=== PATIENT | male | born 1965 | race Caucasian/White ===

== ENCOUNTER 2017-08-09 12:45 | Emergency (ER) | payer MEDICARE ==
[~2017-08-09] VITALS: Ht 177.8 cm; Wt 93.0 kg
--- OUTSIDE RECORDS SUMMARY | 2017-08-09 12:47 | XMS REPORT | Clinical Summary ---
Author Author ASH [facility] CenterAccess PharmaceuticalsWashington [facility] Organization [facility] Address Unknown Phone Unavailable Care Team Providers Care Assistant Professor Of Radiology Name Role Phone PCP Unavailable Allergies No Known Allergies Current Medications Prescription Sig. Disp. Refills Start End Date Status Date furosemide (LASIX) 80 MG Take 1 tablet (80 mg 30 tablet 5 09/01/19 09/01/19 Active tablet total) by mouth daily. 17 18 lactulose (CHRONULAC) 10 Take 30 mLs (20 g total) 946 mL 6 09/01/19 Active gram/15 mL (15 mL) by mouth 3 (three) times 17 solutionIndications: daily. Hepatic encephalopathy (HCC) buPROPion (ZYBAN) 150 MG Take 1 tablet (150 mg 30 tablet 0 09/09/19 09/09/19 Active 12 hr tablet total) by mouth 2 (two) 17 18 times daily. spironolactone Take 3 tablets (150 mg 100 tablet 6 07/13/19 (ALDACTONE) 50 MG tablet total) by mouth daily. 17 18 furosemide (LASIX) 20 MG Take 4 tablets (80 mg 20 tablet 0 07/19/19 08/22/19 Discontin tablet total) by mouth daily. 17 17 ued furosemide (LASIX) 20 MG Take 4 tablets (80 mg 30 tablet 6 08/22/19 09/01/19 Discontin tablet total) by mouth daily. 17 17 ued lactulose (CEPHULAC) 20 Take 1 packet (20 g 90 each 6 08/22/1908/31 Discontin gram packet total) by mouth 3 (three) 17 17 ued times daily. Active Problems Problem Noted Date Awaiting organ transplant status 12/18/2016 Encounter for pre-transplant evaluation for liver transplant 08/09/2016 Last Assessment & Plan: He is an acceptable candidate for liver transplant. He can proceed with further evaluation for transplant. Alcoholic cirrhosis 07/12/2016 Last Assessment & Plan: Liver disease secondary to ETOH use. His last drink was in September 2013. Portal hypertension 07/12/2016 Last Assessment & Plan: He presents with ascites. Ascites 07/12/2016 Last Assessment & Plan: He does require paracentesis for his ascites. He is also on diuretics and was instructed about the importance of a low sodium diet. Sarcopenia 07/12/2016 Last Assessment & Plan: Significant muscle wasting noted on exam. Pre-albumin and zinc assessment recommended. See above discussion. Immunity status testing 07/12/2016 Last Assessment & Plan: Serological tests will be completed to determine the presence of immunity to hepatitis A and B. If the patient does not have adequate immunity, we would recommend administration of appropriate vaccination as per CDC guidelines by the primary care provider. Screening for malignant neoplasm 07/12/2016 Last Assessment & Plan: Cirrhosis, regardless of etiology, is a risk factor for development of hepatocellular carcinoma. The annual incidence of HCC varies from 1.5-7%. Thus, we recommend surveillance for HCC be performed using contrast MRI or CT imaging and alphafetoprotein every 6 months. Malnutrition 07/12/2016 Last Assessment & Plan: Likely secondary to decreased po related to large volume ascites. Discussed the importance of US paracentesis more frequent until the diuretics can be adjusted. Frequent small meals low in sodium as noted above. Encounters Date Type Specialty Care Team Description 08/06/2017 Telephone Transplant Hepatology Abbey Gar RN Follow-up 07/31/2017 Telephone Transplant Hepatology Rosibel Bobo Appointment (Confirmed 08/14 & 10/23 appts w/pt. Itinerary mailed.) 07/31/2017 Telephone Transplant Hepatology Rosibel Bobo Appointment (LVM. Calling to confirm 08/14 appts 12:30 Feghali & mri @ 2. ) 07/26/2017 Telephone Transplant Hepatology Rosibel Bobo Appointment (Called pt to reschedule mri due to machine being down. Pt also asked to reschedule Feghali & labs all to be done on the same day. Rescheduled to 08/14. Itinerary mailed.) 07/13/2017 Telephone Transplant Hepatology Rosibel Bobo Appointment (Confirmed 07/27 feghali & mri appts also scheduled labs for meld update and confirmed 10/23 clinic appts w/pt. Itinerary emailed.) 07/03/2017 Telephone Transplant Hepatology Abbey Gar RN Follow-up 07/02/2017 Telephone Transplant Hepatology Abbey Gar RN Follow-up 05/05/2017 Orders Only Transplant Hepatology Abbey Gar RN Awaiting organ transplant status (Primary Dx) 05/02/2017 Telephone Transplant Hepatology Rosibel Bobo Appointment (Scheduled 07/27 mri & Dr Landrum appt (8am) also 10/23 clinic appt w/pt. Itinerary mailed.) 04/24/2017 Follow-Up Transplant Hepatology Therese Tanner, Alcoholic cirrhosis of MD [facility]PH liver with ascites (HCC) Meeta Downing MD (Primary Dx) 04/23/2017 Telephone Transplant Hepatology Rosibel Bobo Appointment (Confirmed 04/24 appt w/pt. ) 03/27/2017 Orders Only Transplant Hepatology Meeta Downing MD Awaiting organ transplant status;Abnormal finding of blood chemistry ;Abnormal coagulation profile 03/27/2017 Ancillary Lab Meeta Downing MD Orders 03/27/2017 Ancillary Lab Meeta Downing MD Orders 03/27/2017 Ancillary Lab Meeta Downing MD Orders 03/27/2017 Orders Only Transplant Hepatology Roge Soni Awaiting organ transplant status;Abnormal finding of blood chemistry ;Abnormal coagulation profile 03/26/2017 Orders Only Transplant Hepatology Abbey Gar RN Awaiting organ transplant status (Primary Dx);Abnormal finding of blood chemistry ;Abnormal coagulation profile 03/20/2017 Orders Only Transplant HepatRosibel Gooden Awaiting organ transplant status;Abnormal finding of blood chemistry ;Abnormal results of liver function studies 03/17/2017 Orders Only Transplant Hepatology Abbey Gar RN Awaiting organ transplant status (Primary Dx);Abnormal finding of blood chemistry ;Abnormal results of liver function studies 03/16/2017 Orders Only Transplant HepatAbbey Sullivan RN 03/13/2017 Telephone Transplant HepatRosibel Gooden Appointment (Called to schedule labs for meld update. [facility] 02/12/2017 Telephone Transplant HepatRosibel Gooden Appointment (Rescheduled 02/13 clinic appt w/pt to Apr 24. Pt said he goes by mychart and is unable to see appt in his mychart i explained he is on my schedule and his appt was sxd w/him in December. Mailed itinerary.) 02/12/2017 Telephone Transplant Hepatology Rosibel Bobo Appointment (Confirmed 02/13 appt w/pt. ) 01/29/2017 Hospital Radiology Meeta Downing MD Other ascites Encounter 01/29/2017 [facility] Radiology Eric Ortega MD Cirrhosis of liver with Encounter ascites, unspecified hepatic cirrhosis type (HCC);Screening for malignant neoplasm;Awaiting organ transplant status 01/16/2017 Documentation Transplant Hepatology Rosibel Bobo 01/15/2017 Orders Only Transplant Hepatology Abbey Gar RN Other ascites (Primary Dx) 01/15/2017 Orders Only Transplant Hepatology Abbey Gar RN Other ascites (Primary Dx) 12/25/2016 [facility] Charge Transplant Hepatology Landen Howard MD Visit Provider, [facility] Generic 12/18/2016 Telephone Transplant Hepatology Rosibel Bobo Appointment (Scheduled 02/13 clinic & mri appt w/pt. Itinerary mailed.) 12/18/2016 Abstract Transplant Hepatology Clarissa Shultz 12/18/2016 Orders Only Transplant Hepatology Abbey Gar RN Cirrhosis of liver with ascites, unspecified hepatic cirrhosis type (HCC) (Primary Dx);Screening for malignant neoplasm;Awaiting organ transplant status 12/18/2016 Abstract Transplant Hepatology Abbey Gar RN 12/12/2016 Orders Only Transplant Hepatology An Joshua MD Hepatic cirrhosis, unspecified hepatic cirrhosis type (HCC);Cancer screening 12/12/2016 Ancillary Lab Eric Ortega MD Orders 12/12/2016 Ancillary Lab Eric Ortega MD Orders 12/12/2016 Ancillary Lab Eric Ortega MD Orders 12/12/2016 Orders Only Transplant Hepatology Issa Rivera Hepatic cirrhosis, unspecified hepatic cirrhosis type (HCC) 12/11/2016 Orders Only Transplant Hepatology Abbey Gar RN Hepatic cirrhosis, unspecified hepatic cirrhosis type (HCC) (Primary Dx) 12/08/2016 Orders Only Transplant Hepatology Abbey Gar RN Hepatic cirrhosis, unspecified hepatic cirrhosis type (HCC) (Primary Dx);Cancer screening 12/08/2016 Telephone Transplant Hepatology Rosibel Bobo Appointment (Scheduled 12/12 lab appt w/pt (pt said abbey wanted him to get labs done). Itinerary mailed.) 12/08/2016 Telephone Transplant HepatRosibel Gooden 10/09/2016 Office Visit Hepatology An Joshua MD Cirrhosis of liver with ascites, unspecified hepatic cirrhosis type (HCC) (Primary Dx);Malnutrition ;Other ascites;Sarcopenia;Immuni ty status testing;Screening for malignant neoplasm 10/04/2016 Documentation Transplant Hepatology Rosibel Bobo 10/04/2016 Telephone Transplant Hepatology Rosibel Bobo Appointment (Unable to leave message person is not accepting calls. Calling to confirm 10/09 1:30 pm appt. Itinerary mailed.) 10/04/2016 Telephone Transplant HepatRosibel Gooden Appointment (Unable to leave voicemail subscriber not accepting calls -Called to confirm added 10/09 1:30 appointment w/pt. Itinerary mailed.) 09/25/2016 Telephone Transplant Hepatology Abbey Gar RN Follow-up 09/15/2016 Telephone Transplant Hepatology Abbey Gar RN Follow-up 09/08/2016 Telephone Transplant Hepatology Abbey Gar RN Follow-up 09/08/2016 Telephone Hepatology Heidy Christian NP smoking cessation 09/08/2016 Orders Only Hepatology Heidy Christian, ISABEL 09/08/2016 Telephone Transplant Hepatology Abbey Gar RN Follow-up 09/06/2016 Orders Only Hepatology Heidy Christian, ISABEL 09/05/2016 Telephone Hepatology Heidy Christian NP chantix 09/05/2016 Orders Only Hepatology Heidy Christian, ISABEL 08/31/2016 Orders Only Hepatology Jeny Bhagat RN 08/21/2016 Office Visit Hepatology Eric Ortega MD Hepatic encephalopathy (HCC) (Primary Dx);Alcoholic cirrhosis of liver with ascites (HCC);Other ascites;Portal hypertension (HCC);Immunity status testing;Screening for malignant neoplasm 08/18/2016 Abstract Transplant Hepatology Destiny Maier 08/10/2016 [facility] Charge Transplant Hepatology Landen Howard MD Visit Provider, [facility] Registry Generic 08/10/2016 Documentation Transplant Hepatology Ricardo Valadez RPH 08/10/2016 Documentation Transplant Hepatology Abbey Gar RN 08/10/2016 Documentation Transplant Hepatology Destiny Maier 08/09/2016 Hospital Radiology An Joshua MD Hepatic cirrhosis, Encounter unspecified hepatic cirrhosis type (HCC);Pre-transplant evaluation for liver transplant;Screening for malignant neoplasm;Malnutrition 08/09/2016 [facility] An Joshua MD Hepatic cirrhosis, Encounter unspecified hepatic cirrhosis type (HCC);Pre-transplant evaluation for liver transplant;Malnutrition 08/09/2016 [facility] An Joshua MD Hepatic cirrhosis, Encounter unspecified hepatic cirrhosis type (HCC);Pre-transplant evaluation for liver transplant;Malnutrition 08/09/2016 [facility] An Joshua MD Hepatic cirrhosis, Encounter unspecified hepatic cirrhosis type (HCC);Pre-transplant evaluation for liver transplant;Malnutrition ;Osteoporosis screening 08/09/2016 Evaluation Transplant Hepatology An Joshua MD Encounter for Neno Reece, pre-transplant evaluation MD for liver transplant;Portal hypertension 08/09/2016 Evaluation Transplant Hepatology An Joshua MD Cook, Amy 08/09/2016 Social Work Transplant Hepatology An Joshua MD Holder, Ann, LCSW 08/09/2016 Office Visit Lab An Joshua MD Hepatic cirrhosis , unspecified hepatic cirrhosis type (HCC);Pre-transplant evaluation for liver transplant;Malnutrition 08/09/2016 Orders Only Transplant Hepatology An Joshua MD Hepatic cirrhosis, unspecified hepatic cirrhosis type (HCC);Pre-transplant evaluation for liver transplant;Malnutrition ;Screening for malignant neoplasm;Immunity status testing 08/08/2016 Telephone Transplant Hepatology Rosibel Bobo Appointment (Confirmed eval appts w/pt) after 08/08/2016 Family History Medical History Relation Name Comments Diabetes Father Hypertension Father Unremarkable Mother Relation Name Status Comments Father Mother Alive Social History Tobacco Use Types Packs/Day Years Used Date Current Every Day Smoker 0.5 Alcohol Use Drinks/Week oz/Week Comments No Quit drinking 3 years ago in September Sex Assigned at Date Recorded Not on file Last Filed Vital Signs Vital Sign Reading Time Taken Blood Pressure 115/76 04/24/2017 11:22 AM ELECTRICAL DESIGNER Pulse 103 04/24/2017 11:22 AM ELECTRICAL DESIGNER Temperature 36.9 C (98.4 F) 04/24/2017 11:22 AM ELECTRICAL DESIGNER Respiratory Rate 22 04/24/2017 11:22 AM ELECTRICAL DESIGNER Oxygen Saturation 85% 04/24/2017 11:22 AM ELECTRICAL DESIGNER Inhaled Oxygen - - Concentration Weight 86.9 kg (191 lb 9.6 oz) 04/24/2017 11:22 AM ELECTRICAL DESIGNER Height 177.8 cm (5' 10") 04/24/2017 11:22 AM ELECTRICAL DESIGNER Body Mass Index 27.49 04/24/2017 11:22 AM ELECTRICAL DESIGNER Plan of Treatment Date Type Specialty Care Team Description 08/14/2017 Orders Only Lab Meeta Downing MD [address] [address] [phone] 08/14/2017 Appointment Radiology Eric Ortega MD [address] [address] [phone] 10/23/2017 Follow-Up Transplant Hepatology Health Maintenance Due Date Last Done Comments INFLUENZA VACCINE 12/17/2017 Results * CBC with platelet count + automated diff (04/24/2017 1:13 PM) Only the most recent of 5 results within the time period is included. Component Value Ref Range WBC 4.3 3.5 - 10.5 K/ L RBC 5.18 4.63 - 6.08 M/ L Hemoglobin 15.5 13.7 - 17.5 GM/DL Hematocrit 46.5 40.1 - 51.0 % MCV 89.8 79.0 - 92.2 fL MCH 29.9 25.7 - 32.2 pg MCHC 33.3 32.3 - 36.5 GM/DL RDW 16.3 (H) 11.6 - 14.4 % Platelets 156 150 - 450 K/CU MM MPV 10.7 9.4 - 12.4 fL nRBC 0 0 - 0 /100 WBC % Neutros 64 % % Lymphs 19 % % Monos 8 % % Eos 7 % % Baso 1 % # Neutros 2.77 1.78 - 5.38 K/ L # Lymphs 0.84 (L) 1.32 - 3.57 K/ L # Monos 0.36 0.30 - 0.82 K/ L # Eos 0.28 0.04 - 0.54 K/ L # Baso 0.05 0.01 - 0.08 K/ L Immature 1 0 - 1 % Granulocytes-Relative Specimen [place] [address] * Prothrombin time/INR (04/24/2017 1:13 PM) Only the most recent of 6 results within the time period is included. Component Value Ref Range Protime 18.5 (H) 11.7 - 14.7 seconds INR 1.5 <=5.9 Specimen [place] [address] Narrative RECOMMENDED COUMADIN/WARFARIN INR THERAPY RANGES STANDARD DOSE: 2.0 - 3.0 Includes: PROPHYLAXIS for venous thrombosis, systemic embolization; TREATMENT for venous thrombosis and/or pulmonary embolus. HIGH RISK: Target INR is 2.5-3.5 for patients with mechanical heart valves. * CBC with platelet count + automated diff (04/24/2017 1:13 PM) Only the most recent of 5 results within the time period is included. Specimen Performing Laboratory Blood [facility]) Narrative The following orders were created for panel order CBC with platelet count + automated diff. Procedure Abnormality Status --------- - ------ CBC with platelet count ...[[id number]]AbnormalFinal result Please view results for these tests on the individual orders. * Bilirubin, direct (04/24/2017 1:13 PM) Only the most recent of 4 results within the time period is included. Component Value Ref Range Bilirubin, Direct 0.9 (H) 0.1 - 0.5 mg/dL Specimen Performing Laboratory Blood [address] [address] * Comprehensive metabolic panel (04/24/2017 1:13 PM) Only the most recent of 4 results within the time period is included. Component Value Ref Range Protein, Total 8.1 6.0 - 8.3 gm/dL Albumin 2.8 (L) 3.5 - 5.0 g/dL Alkaline Phosphatase 151 (H) 40 - 150 U/L Total Bilirubin 1.8 (H) 0.2 - 1.2 mg/dL Sodium 133 (L) 136 - 145 meq/L Potassium 4.0 3.5 - 5.1 meq/L Chloride 101 98 - 107 meq/L CO2 24 22 - 29 meq/L BUN 15 7 - 21 mg/dL Creatinine 1.14 0.57 - 1.25 mg/dL Glucose 71 70 - 105 mg/dL Calcium 8.8 8.4 - 10.2 mg/dL AST 32 5 - 34 U/L ALT 18 6 - 55 U/L EGFR 68Comment: ESTIMATED GFR IS NOT ACCURATE mL/min/1.73 sq m CREATININE CLEARANCE IN PREDICTING GLOMERULAR FILTRATION RATE. ESTIMATED GFR IS NOT APPLICABLE FOR DIALYSIS PATIENTS. Specimen Performing [place] [address] * MRI abdomen with and without contrast (01/29/2017 2:54 PM) Only the most recent of 2 results within the time period is included. Specimen Performing Laboratory [place] [facility] Narrative FINAL REPORT History: Liver transplant evaluation, cirrhosis Comparison: 06/09/2016 Technique : Multiplanar imaging with multiple sequences of the abdomen was performed utilizing a 3.0 leisa magnet with and without the administration of gadolinium contrast. Comment: There is a partially visualized large left sided pleural effusion and small right sided pleural effusion. There are no focal or diffuse abnormalities of the osseous structures. The subcutaneous soft tissues as well as the musculature are within normal limits. The adrenal glands, kidneys, pancreas, stomach, and duodenum are within normal limits. There is no abdominal or retroperitoneal lymphadenopathy. The visualized portion of the small bowel is within normal limits. There is some long segment of the right colon. There is splenomegaly. There is a small amount of abdominal ascites. The main portal vein is atretic measuring up to 0.6 cm. The findings are not appreciably changed. No definite thrombus is identified. Impression: 1. Hepatic cirrhosis. No suspicious enhancing hepatic lesions are seen. 2. Splenomegaly with findings of portal hypertension. 3. Atretic portal venous system. No definite thrombus is identified. 4. Small amount of abdominal ascites/free fluid. 5. Partially visualized moderate-large sized left sided and small right-sided pleural effusions. Signed: Sameer Natarajan MD Report Verified Date/Time:01/29/2017 15:06:08 Reading Location: [facility] C013Y CT Body Reading Room Procedure Note Interface, External Ris In - 01/29/2017 3:08 PM ELECTRICAL DESIGNER FINAL REPORT History: Liver transplant evaluation, cirrhosis Comparison: 06/09/2016 Technique : Multiplanar imaging with multiple sequences of the abdomen was performed utilizing a 3.0 leisa magnet with and without the administration of gadolinium contrast. Comment: There is a partially visualized large left sided pleural effusion and small right sided pleural effusion. There are no focal or diffuse abnormalities of the osseous structures. The subcutaneous soft tissues as well as the musculature are within normal limits. The adrenal glands, kidneys, pancreas, stomach, and duodenum are within normal limits. There is no abdominal or retroperitoneal lymphadenopathy. The visualized portion of the small bowel is within normal limits. There is some long segment of the right colon. There is splenomegaly. There is a small amount of abdominal ascites. The main portal vein is atretic measuring up to 0.6 cm. The findings are not appreciably changed. No definite thrombus is identified. Impression: 1. Hepatic cirrhosis. No suspicious enhancing hepatic lesions are seen. 2. Splenomegaly with findings of portal hypertension. 3. Atretic portal venous system. No definite thrombus is identified. 4. Small amount of abdominal ascites/free fluid. 5. Partially visualized moderate-large sized left sided and small right-sided pleural effusions. Signed: Sameer Natarajan MD Report Verified Date/Time: 01/29/2017 15:06:08 Reading Location: [facility] B1 C013Y CT Body Reading Room * POC-Creatinine (01/29/2017 2:27 PM) Component Value Ref Range POC-Creatinine 1.0Comment: TESTED AT [address] 0.6 - 1.3 mg/[place] [address] POC-EGFR 79 mL/min/1.73M2 Specimen Performing Laboratory Blood [facility] [address] [address] * Ultrasound PARACENTESIS (01/29/2017 1:20 PM) Specimen Performing Laboratory [place] [facility] Narrative FINAL REPORT Ultrasound guided paracentesis Clinical History:Ascites Local Anesthesia:5 cc of 1% lidocaine Technique:Informed consent is obtained.The risks of pain, bleeding, infection, bowel perforation, injury to adjacent structures, and adverse medication reactions are discussed with the patient. After informed consent is obtained, the patient's abdomen is scanned.The right lower quadrant of the abdomen is selected for paracentesis.After the largest fluid pocket area is marked, and the anterior abdominal wall is evaluated with color Doppler to exclude presence of blood vessels traversing the area, the skin is prepped and draped in the usual sterile manner.After local anesthesia is achieved, a 5 [place] catheter is advanced into the peritoneal cavity. Approximately 6400 cc. of serous fluid is drained, without immediate complications.Fluid is sent for analysis. Patient Disposition:The patient is discharged from the ultrasound department after the paracentesis, in good condition. Impression: Successful and uncomplicated ultrasound guided paracentesis is performed. Signed: Boston Liang MD Report Verified Date/Time:01/29/2017 13:31:45 Reading Location: [facility] [id number] Ultrasound Reading Room Procedure Note Interface, External Ris In - 03/02/2017 3:05 PM ELECTRICAL DESIGNER FINAL REPORT Ultrasound guided paracentesis Clinical History: Ascites Local Anesthesia: 5 cc of 1% lidocaine Technique: Informed consent is obtained. The risks of pain, bleeding, infection, bowel perforation, injury to adjacent structures, and adverse medication reactions are discussed with the patient. After informed consent is obtained, the patient's abdomen is scanned. The right lower quadrant of the abdomen is selected for paracentesis. After the largest fluid pocket area is marked, and the anterior abdominal wall is evaluated with color Doppler to exclude presence of blood vessels traversing the area, the skin is prepped and draped in the usual sterile manner. After local anesthesia is achieved, a 5 [place] catheter is advanced into the peritoneal cavity. Approximately 6400 cc. of serous fluid is drained, without immediate complications. Fluid is sent for analysis. Patient Disposition: The patient is discharged from the ultrasound department after the paracentesis, in good condition. Impression: Successful and uncomplicated ultrasound guided paracentesis is performed. Signed: Boston Liang MD Report Verified Date/Time: 01/29/2017 13:31:45 Reading Location: [place] [id number] Ultrasound Reading Room * Body fluid cell count with differential (01/29/2017 12:39 PM) Component Value Ref Range Appearance Slightly Hazy (A) Clear Color Straw Colorless, Straw RBCs 45 (H) <=1 /cu mm Adjusted WBC Count 82 (H) <=5 /cu mm Lining Cells 1 <=1 /cu mm % Segs 1 % % Lymphs 51 % % Monos 48 % % Eos 0 % % Baso 0 % Container Body Fluid EDTA Tube Specimen Performing Laboratory Body Fluid - Ascites [address] [address] * Platelet count (01/29/2017 10:51 AM) Component Value Ref Range Platelets 128 (L) 150 - 450 K/CU MM Specimen Performing Laboratory Blood [address] [address] * Alpha fetoprotein (AFP), tumor marker (12/12/2016 10:24 AM) Component Value Ref Range Alpha-Fetoprotein 4.1 <10.0 ng/mL Specimen Performing Laboratory Blood [address] [address] * Hepatic function panel (10/09/2016 2:26 PM) Component Value Ref Range Protein, Total 7.4 6.0 - 8.3 gm/dL Albumin 2.7 (L) 3.5 - 5.0 g/dL Total Bilirubin 1.4 (H) 0.2 - 1.2 mg/dL Bilirubin, Direct 0.7 (H) 0.1 - 0.5 mg/dL Alkaline Phosphatase 155 (H) 40 - 150 U/L AST 34 5 - 34 U/L ALT 26 6 - 55 U/L Specimen Performing Laboratory Blood [address] [address] * Basic Metabolic Panel (10/09/2016 2:26 PM) Component Value Ref Range Sodium 133 (L) 136 - 145 meq/L Potassium 4.2 3.5 - 5.1 meq/L Chloride 101 98 - 107 meq/L CO2 23 22 - 29 meq/L BUN 15 7 - 21 mg/dL Creatinine 1.14 0.57 - 1.25 mg/dL Glucose 66 (L) 70 - 105 mg/dL Calcium 8.6 8.4 - 10.2 mg/dL EGFR 68Comment: ESTIMATED GFR IS NOT ACCURATE mL/min/1.73 sq m CREATININE CLEARANCE IN PREDICTING GLOMERULAR FILTRATION RATE. ESTIMATED GFR IS NOT APPLICABLE FOR DIALYSIS PATIENTS. Specimen [place] [address] * Drug screen, urine, transplant (08/09/2016 1:11 PM) Specimen Performing Laboratory Urine [facility] [address] [address] * Urinalysis w/Microscopic (08/09/2016 1:11 PM) Component Value Ref Range Color, UA Yellow Clarity, UA Clear Specific [place], UA 1.026 1.001 - 1.035 pH, UA 5.5 5.0 - 8.0 Protein, UA 10 mg/dL (A) Negative Glucose, UA Negative Negative Ketones, UA Trace (A) Negative Bilirubin, UA Negative Negative Blood, UA Negative Negative Nitrite, UA Negative Negative Leukocytes, UA Negative Negative Urobilinogen, UA 2.0 (H) 0.2 - 1.0 mg/dL RBC, UA 1 /HPF WBC, UA 1 /HPF Mucus Rare Squam Epithel, UA <1 /HPF Hyaline Casts, UA 5 /LPF Specimen Source Specimen [place]forming [place] [address] * XR mandible 4 views min (08/09/2016 1:10 PM) Specimen Performing Laboratory GE RIS Impressions : No periodontal lucencies identified to suggest periodontal abscesses. Signed: Sameer Natarajan MD Report Verified Date/Time:08/09/2016 13:14:27 Reading Location: [address] Radiology Reading Room Narrative FINAL REPORT History: Liver transplant evaluation, cirrhosis COMPARISON: None DISCUSSION: Multiple views of the mandible were submitted for interpretation. No lytic or blastic abnormalities are seen. Dental fillings/hardware are identified. No fractures are appreciated. No periodontal lucencies are identified to suggest periodontal abscesses. Procedure Note Interface, External Ris In - 08/09/2016 1:16 PM CDT FINAL REPORT History: Liver transplant evaluation, cirrhosis COMPARISON: None DISCUSSION: Multiple views of the mandible were submitted for interpretation. No lytic or blastic abnormalities are seen. Dental fillings/hardware are identified. No fractures are appreciated. No periodontal lucencies are identified to suggest periodontal abscesses. IMPRESSION : No periodontal lucencies identified to suggest periodontal abscesses. Signed: Sameer Natarajan MD Report Verified Date/Time: 08/09/2016 13:14:27 Reading Location: [address] Radiology Reading Room * XR dxa bone density study (08/09/2016 12:57 PM) Specimen Performing Laboratory GE RIS Impressions : The left femoral neck bone mineral density is 0.998gm/cm2, the T-score is -0.6, and the Z-score is 0.0. The right femoral neck total bone mineral density is 0.997gm/cm2, the T-score is -0.6, and the Z-score is 0.0. The lumbar spine total bone mineral density is 1.306gm/cm2, the T-score is 0.7, and the Z-score is 0.9. Signed: Marissa Fischer MD Report Verified Date/Time:08/09/2016 14:56:57 Reading Location: [facility] Mammo Reading Room Narrative FINAL REPORT Bone mineral density study 08/09/2016. CLINICAL INDICATION: Liver transplant evaluation. COMPARISON: None available FINDINGS: Evaluation of the left and right femoral necks and lumbar spine was performed utilizing a [employer] Advance bone densitometer. Data reflect young adult matched T-scores and age-matched Z scores. Procedure Note Interface, External Ris In - 08/09/2016 2:59 PM CDT FINAL REPORT Bone mineral density study 08/09/2016. CLINICAL INDICATION: Liver transplant evaluation. COMPARISON: None available FINDINGS: Evaluation of the left and right femoral necks and lumbar spine was performed utilizing a [employer] Advance bone densitometer. Data reflect young adult matched T-scores and age-matched Z scores. IMPRESSION : The left femoral neck bone mineral density is 0.998gm/cm2, the T-score is -0.6, and the Z-score is 0.0. The right femoral neck total bone mineral density is 0.997gm/cm2, the T-score is -0.6, and the Z-score is 0.0. The lumbar spine total bone mineral density is 1.306gm/cm2, the T-score is 0.7, and the Z-score is 0.9. Signed: Marissa Fischer MD Report Verified Date/Time: 08/09/2016 14:56:57 Reading Location: [facility] Mammo Reading Room * XR chest 2 views (08/09/2016 12:50 PM) Specimen Performing Laboratory GE RIS Impressions : Hqagt-esbizilr-ddvnx left-sided pleural effusion with some adjacent consolidation. Signed: Sameer Natarajan MD Report Verified Date/Time:08/09/2016 13:34:25 Reading Location: [address] Radiology Reading Room Narrative FINAL REPORT HISTORY : liver transplant evaluation, cirrhosis. Comparison: None Comment: Two views of the chest, PA and lateral, were obtained. The trachea is midline. The cardiac silhouette size is within normal limits. No pneumothorax is seen. There is a kelik-lfnubunr-uxafy left-sided pleural effusion. Adjacent consolidation may represent atelectasis. Pneumonitis or aspiration cannot be excluded. Underlying mass cannot be excluded. Procedure Note Interface, External Ris In - 08/09/2016 1:36 PM CDT FINAL REPORT HISTORY : liver transplant evaluation, cirrhosis. Comparison: None Comment: Two views of the chest, PA and lateral, were obtained. The trachea is midline. The cardiac silhouette size is within normal limits. No pneumothorax is seen. There is a hhdnc-wthyjzeu-dkqhk left-sided pleural effusion. Adjacent consolidation may represent atelectasis. Pneumonitis or aspiration cannot be excluded. Underlying mass cannot be excluded. IMPRESSION : Iqwbu-mhhubrzc-wbdpd left-sided pleural effusion with some adjacent consolidation. Signed: Sameer Natarajan MD Report Verified Date/Time: 08/09/2016 13:34:25 Reading Location: [address] Radiology Reading Room * Type and screen, automated (08/09/2016 8:28 AM) Component Value Ref Range ABO/RH AUTOMATED (BEAKER) B NEGATIVE Ab Scrn NEGATIVE Specimen Performing Laboratory Blood [address] [address] * Blood gas, arterial (08/09/2016 7:43 AM) Component Value Ref Range pH, Arterial 7.50 (H) 7.35 - 7.45 pCO2, Arterial 31 (L) 35 - 45 mm Hg pO2, Arterial 80 80 - 90 mm Hg O2 Sat, Arterial 96.8 96.0 - 97.0 % HCO3, Arterial 23 21 - 29 mmol/L Base Excess, Arterial 1.1 -2.0 - 3.0 mmol/L Specimen Performing Laboratory Blood, Arterial [address] [address] * Miscellaneous lab test (08/09/2016 7:31 AM) Component Value Ref Range Scan Result Specimen Performing Laboratory Blood [facility] [address] [place] [address] * T Spot TB (08/09/2016 7:29 AM) Component Value Ref Range T-Spot TB Negative Neg Ctrl Spot Count 0 Panel A Spot 0 Panel B Spot [address] >20 Scan Result Specimen Performing Laboratory Blood [facility] [address] [facility], [address] [place] [address] * HIV-1 Antigen with HIV-1/2 Antibody (08/09/2016 7:29 AM) Component Value Ref Range HIV-1 Antigen with HIV Nonreactive Nonreactive 1&2 Antibody Specimen Performing Laboratory Blood [address] [address] * Calcium, Ionized (08/09/2016 7:29 AM) Component Value Ref Range Calcium, Ion 1.00 (L) 1.12 - 1.27 mmol/L pH, Blood 7.50 Specimen Performing Laboratory Blood [address] [address] * Zinc (08/09/2016 7:29 AM) Component Value Ref Range Zinc 35 (L) 60 - 130 mcg/dL Comment: This test was developed and its analytical performance characteristics have been determined by [facility]. It has not been cleared or approved by the [place] Food and Drug Administration. This assay has been validated pursuant to the CLIA regulations and is used for clinical purposes. Specimen Performing Laboratory Blood [facility] [address] [address] Narrative Performing Lab *[facility], [address] [place] [phone] Adonis Gong MD, FCAP * Hepatitis B core antibody, IgM (08/09/2016 7:29 AM) Component Value Ref Range Hep B C IgM Nonreactive Nonreactive Specimen Performing Laboratory [address] [address] * aPTT (08/09/2016 7:29 AM) Component Value Ref Range PTT 39.0 (H) 22.5 - 36.0 seconds Specimen Performing Laboratory Blood [address] [address] * Fibrinogen (08/09/2016 7:29 AM) Component Value Ref Range Fibrinogen 352 225 - 434 mg/dl Specimen Performing Laboratory [address] [address] * Testosterone, free + total (08/09/2016 7:29 AM) Component Value Ref Range Testosterone 560 250 - 1100 ng/dL Testosterone, Free 32.4 (L) 35.0 - 155.0 pg/mL Specimen Performing Laboratory Blood [facility] [address] [address] Narrative Performing Lab *[facility], [address] [place] [phone] Adonis Gong MD, FCAP * T3 (08/09/2016 7:29 AM) Component Value Ref Range T3, Total 99 48 - 159 ng/dL Specimen [place] [address] Narrative Effective 02/03/2014: Reference Range Change New: 48-159 Previous: 60-181 * PSA (08/09/2016 7:29 AM) Component Value Ref Range PSA 0.1 0.0 - 4.0 ng/mL Specimen Performing Laboratory Blood [address] [address] * Hemoglobin A1c (08/09/2016 7:29 AM) Component Value Ref Range Hemoglobin A1C 5.1 4.3 - 6.1 % Specimen Performing Laboratory [address] [address] * Carcinoembryonic Antigen (CEA) (08/09/2016 7:29 AM) Component Value Ref Range CEA, SERUM 2.7 0.0 - 5.0 ng/mL Specimen Performing Laboratory [address] [address] * Cytomegalovirus antibody, IgM (08/09/2016 7:28 AM) Component Value Ref Range CMV IgM Negative Specimen Performing Laboratory [address] [address] * Carbohydrate antigen 19-9 (CA 19-9) (08/09/2016 7:28 AM) Component Value Ref Range CA 19-9 25 <34 U/mL Comment: This test was performed using the Siemens ([employer]) Chemiluminescent method. Values obtained from different assay methods cannot be used interchangeably. CA19-9 levels, regardless of value, should not be interpreted as absolute evidence of the presence or absence of disease. Specimen Performing Laboratory Blood [facility] [address] [address] Narrative Performing Lab [facility] [address] [address] Daniela Bhatti MD * EBV-VCA antibody, IgM (08/09/2016 7:28 AM) Component Value Ref Range EBV VCA IgM Positive Specimen Performing Laboratory Blood [address] [address] * EBV-VCA antibody, IgG (08/09/2016 7:28 AM) Component Value Ref Range EBV VCA IgG Positive Specimen Performing Laboratory [address] [address] * Vitamin D, 25-Hydroxy (08/09/2016 7:28 AM) Component Value Ref Range Vitamin D 25-Hydroxy 18.5 13.0 - 47.8 ng/mL Specimen Performing Laboratory Blood [address] [address] * RPR (08/09/2016 7:28 AM) Component Value Ref Range RPR Nonreactive Nonreactive Specimen Performing Laboratory [address] [address] * Cytomegalovirus antibody, IgG (08/09/2016 7:28 AM) Component Value Ref Range CMV IgG Positive Specimen Performing Laboratory [address] [address] * Uric acid (08/09/2016 7:28 AM) Component Value Ref Range Uric Acid 7.0 2.6 - 7.2 mg/dL Specimen Performing Laboratory [address] [address] * Transferrin (08/09/2016 7:28 AM) Component Value Ref Range Transferrin 214 174 - 382 mg/dL Specimen Performing Laboratory [address] [address] * TSH (08/09/2016 7:28 AM) Component Value Ref Range TSH 5.95 (H) 0.35 - 4.94 uIU/mL Specimen Performing Laboratory [address] [address] * T4 (08/09/2016 7:28 AM) Component Value Ref Range T4, Total 8.2 4.9 - 11.7 ug/dL Specimen Performing Laboratory [address] [address] * Phosphorus (08/09/2016 7:28 AM) Component Value Ref Range Phosphorus 3.1 2.3 - 4.7 mg/dL Specimen Performing Laboratory [address] [address] * Magnesium (08/09/2016 7:28 AM) Component Value Ref Range Magnesium 1.8 1.6 - 2.6 mg/dL Specimen Performing Laboratory [address] [address] * Gamma Glutamyl Transferase (GGT) (08/09/2016 7:28 AM) Component Value Ref Range GGT 35 9 - 64 U/L Specimen Performing Laboratory Blood [address] [address] * Ethanol (08/09/2016 7:28 AM) Component Value Ref Range Ethanol Lvl <10 <=10 mg/dL Specimen Performing Laboratory Blood [address] [address] * Lipid panel (08/09/2016 7:28 AM) Component Value Ref Range Triglycerides 58 mg/dL Cholesterol 96 mg/dL HDL 30 mg/dL LDL Calculated 54 mg/dL Specimen Performing Laboratory Blood [address] [address] Narrative Triglyceride Reference Range: Low Risk <150 [id number] High Risk 200-499 Very High Risk>=500 Cholesterol Reference Range: Low Risk <200 [id number] High Risk>240 HDL Cholesterol Reference Range: Low Risk >=60 High Risk <40 LDL Cholesterol Reference Range: Optimal<100 Near [id number] Very High >=190 * Blood typing, automated (08/09/2016 7:18 AM) Component Value Ref Range ABO/RH AUTOMATED ([place]) B NEGATIVE Specimen Performing Laboratory Blood [address] [address] after 08/08/2016
--- OUTSIDE RECORDS SUMMARY | 2017-08-09 12:47 | XMS REPORT ---
Author Author [facility] Address Unknown Phone Unavailable Care Team Providers Care Chairman Ceo Name Role Phone YASMEEN BIRMINGHAM Unavailable Unavailable JALAL, PRASUN Unavailable Unavailable MILA, RISE Unavailable Unavailable KHADERI, DICK Unavailable Unavailable Problems This patient has no known problems. Allergies, Adverse Reactions, Alerts This patient has no known allergies or adverse reactions. Medications This patient has no known medications. Results Test Description Test Time Test Comments Text Results Atomic Results Result Comments COMPREHENSIVE METABOLIC PANEL 2017-04-24 16:14:00 TOTAL PROTEIN (BEAKER) (test vchk=467) 8.1 gm/dL 6.0-8.3 ALBUMIN (BEAKER) (test kvgc=7135) 2.8 g/dL 3.5-5.0 ALKALINE PHOSPHATASE (BEAKER) (test blav=438) 151 U/L 40-150 BILIRUBIN TOTAL (BEAKER) (test ljqx=958) 1.8 mg/dL 0.2-1.2 SODIUM (BEAKER) (test iphk=876) 133 meq/L 136-145 POTASSIUM (BEAKER) (test tkdi=163) 4.0 meq/L 3.5-5.1 CHLORIDE (BEAKER) (test tmrd=437) 101 meq/L 98-107 CO2 (BEAKER) (test eklj=394) 24 meq/L 22-29 BLOOD UREA NITROGEN (BEAKER) (test idww=261) 15 mg/dL 7-21 CREATININE (BEAKER) (test kqjb=932) 1.14 mg/dL 0.57-1.25 GLUCOSE RANDOM (BEAKER) (test jlsp=933) 71 mg/dL 70-105 CALCIUM (BEAKER) (test ivey=609) 8.8 mg/dL 8.4-10.2 AST (SGOT) (BEAKER) (test jqkc=876) 32 U/L 5-34 ALT (SGPT) (BEAKER) (test zffe=082) 18 U/L 6-55 EGFR (BEAKER) (test duub=6150) 68 mL/min/1.73 sq m ESTIMATED GFR IS NOT ACCURATE CREATININE CLEARANCE IN PREDICTING GLOMERULAR FILTRATION RATE. ESTIMATED GFR IS NOT APPLICABLE FOR DIALYSIS PATIENTS. BILIRUBIN, [id number] 16:14:00* Test Item Value Reference Range Comments BILIRUBIN DIRECT (BEAKER) (test urjq=846) 0.9 mg/dL 0.1-0.5 PROTHROMBIN TIME/[id number] 15:47:00* Test Item Value Reference Range Comments PROTIME (BEAKER) (test msqa=685) 18.5 seconds 11.7-14.7 INR (BEAKER) (test uqow=190) 1.5 <=5.9 RECOMMENDED COUMADIN/WARFARIN INR THERAPY RANGESSTANDARD DOSE: 2.0 - 3.0 Includes: PROPHYLAXIS for venous thrombosis, systemic embolization; TREATMENT for venous thrombosis and/or pulmonary embolus.HIGH RISK: Target INR is 2.5-3.5 for patients with mechanical heart valves.CBC W/PLT COUNT & AUTO [id number] 15:43:00* Test Item Value Reference Range Comments WHITE BLOOD CELL COUNT (BEAKER) (test glzc=966) 4.3 K/ L 3.5-10.5 RED BLOOD CELL COUNT (BEAKER) (test kysi=273) 5.18 M/ L 4.63-6.08 HEMOGLOBIN (BEAKER) (test wuci=350) 15.5 GM/DL 13.7-17.5 HEMATOCRIT (BEAKER) (test fvjg=308) 46.5 % 40.1-51.0 MEAN CORPUSCULAR VOLUME (BEAKER) (test exax=374) 89.8 fL 79.0-92.2 MEAN CORPUSCULAR HEMOGLOBIN (BEAKER) (test fsye=927) 29.9 pg 25.7-32.2 MEAN CORPUSCULAR HEMOGLOBIN CONC (BEAKER) (test ldve=508) 33.3 GM/DL 32.3- 36.5 RED CELL DISTRIBUTION WIDTH (BEAKER) (test mqpv=721) 16.3 % 11.6-14.4 PLATELET COUNT (BEAKER) (test kwbt=385) 156 K/CU MM 150-450 MEAN PLATELET VOLUME (BEAKER) (test fcrg=229) 10.7 fL 9.4-12.4 NUCLEATED RED BLOOD CELLS (BEAKER) (test jzup=808) 0 /100 WBC 0-0 NEUTROPHILS RELATIVE PERCENT (BEAKER) (test drhk=578) 64 % LYMPHOCYTES RELATIVE PERCENT (BEAKER) (test kfkj=764) 19 % MONOCYTES RELATIVE PERCENT (BEAKER) (test jsyx=336) 8 % EOSINOPHILS RELATIVE PERCENT (BEAKER) (test oqsw=457) 7 % BASOPHILS RELATIVE PERCENT (BEAKER) (test cvvw=005) 1 % NEUTROPHILS ABSOLUTE COUNT (BEAKER) (test ybge=049) 2.77 K/ L 1.78-5.38 LYMPHOCYTES ABSOLUTE COUNT (BEAKER) (test gfds=629) 0.84 K/ L 1.32-3.57 MONOCYTES ABSOLUTE COUNT (BEAKER) (test ufwg=122) 0.36 K/ L 0.30-0.82 EOSINOPHILS ABSOLUTE COUNT (BEAKER) (test pxle=205) 0.28 K/ L 0.04-0.54 BASOPHILS ABSOLUTE COUNT (BEAKER) (test narv=731) 0.05 K/ L 0.01-0.08 IMMATURE GRANULOCYTES-RELATIVE PERCENT (BEAKER) (test nnat=9647) 1 % 0-1 COMPREHENSIVE METABOLIC [id number] 17:28:00* Test Item Value Reference Range Comments TOTAL PROTEIN (BEAKER) (test scdu=309) 7.3 gm/dL 6.0-8.3 ALBUMIN (BEAKER) (test gxqx=3450) 2.6 g/dL 3.5-5.0 ALKALINE PHOSPHATASE (BEAKER) (test pmpu=923) 177 U/L 40-150 BILIRUBIN TOTAL (BEAKER) (test dfzh=135) 1.5 mg/dL 0.2-1.2 SODIUM (BEAKER) (test kxih=659) 137 meq/L 136-145 POTASSIUM (BEAKER) (test mvhv=530) 3.8 meq/L 3.5-5.1 CHLORIDE (BEAKER) (test vwiy=716) 107 meq/L 98-107 CO2 (BEAKER) (test ndoo=370) 23 meq/L 22-29 BLOOD UREA NITROGEN (BEAKER) (test tdgd=479) 8 mg/dL 7-21 CREATININE (BEAKER) (test zgjl=619) 0.87 mg/dL 0.57-1.25 GLUCOSE RANDOM (BEAKER) (test shon=776) 64 mg/dL 70-105 CALCIUM (BEAKER) (test woqj=652) 8.5 mg/dL 8.4-10.2 AST (SGOT) (BEAKER) (test xsjr=468) 34 U/L 5-34 ALT (SGPT) (BEAKER) (test eium=808) 19 U/L 6-55 EGFR (BEAKER) (test myrr=2796) 93 mL/min/1.73 sq m ESTIMATED GFR IS NOT ACCURATE CREATININE CLEARANCE IN PREDICTING GLOMERULAR FILTRATION RATE. ESTIMATED GFR IS NOT APPLICABLE FOR DIALYSIS PATIENTS. BILIRUBIN, [id number] 17:28:00* Test Item Value Reference Range Comments BILIRUBIN DIRECT (BEAKER) (test kcqv=774) 0.9 mg/dL 0.1-0.5 PROTHROMBIN TIME/[id number] 16:59:00* Test Item Value Reference Range Comments PROTIME (BEAKER) (test ycgv=663) 17.6 seconds 11.7-14.7 INR (BEAKER) (test oiea=369) 1.5 <=5.9 RECOMMENDED COUMADIN/WARFARIN INR THERAPY RANGESSTANDARD DOSE: 2.0 - 3.0 Includes: PROPHYLAXIS for venous thrombosis, systemic embolization; TREATMENT for venous thrombosis and/or pulmonary embolus.HIGH RISK: Target INR is 2.5-3.5 for patients with mechanical heart valves.CBC W/PLT COUNT & AUTO [id number] 16:45:00* Test Item Value Reference Range Comments WHITE BLOOD CELL COUNT (BEAKER) (test lbde=488) 3.5 K/ L 3.5-10.5 RED BLOOD CELL COUNT (BEAKER) (test zixd=854) 5.00 M/ L 4.63-6.08 HEMOGLOBIN (BEAKER) (test gllu=833) 15.0 GM/DL 13.7-17.5 HEMATOCRIT (BEAKER) (test kcti=806) 45.6 % 40.1-51.0 MEAN CORPUSCULAR VOLUME (BEAKER) (test cxhb=516) 91.2 fL 79.0-92.2 MEAN CORPUSCULAR HEMOGLOBIN (BEAKER) (test tejh=443) 30.0 pg 25.7-32.2 MEAN CORPUSCULAR HEMOGLOBIN CONC (BEAKER) (test fhhb=497) 32.9 GM/DL 32.3- 36.5 RED CELL DISTRIBUTION WIDTH (BEAKER) (test kcbt=832) 16.7 % 11.6-14.4 PLATELET COUNT (BEAKER) (test igjv=465) 156 K/CU MM 150-450 MEAN PLATELET VOLUME (BEAKER) (test ajaw=559) 10.6 fL 9.4-12.4 NUCLEATED RED BLOOD CELLS (BEAKER) (test marh=120) 0 /100 WBC 0-0 NEUTROPHILS RELATIVE PERCENT (BEAKER) (test jgob=800) 59 % LYMPHOCYTES RELATIVE PERCENT (BEAKER) (test mngk=983) 19 % MONOCYTES RELATIVE PERCENT (BEAKER) (test bsnd=794) 13 % EOSINOPHILS RELATIVE PERCENT (BEAKER) (test ybcr=709) 8 % BASOPHILS RELATIVE PERCENT (BEAKER) (test ltlf=066) 2 % NEUTROPHILS ABSOLUTE COUNT (BEAKER) (test ryrd=762) 2.05 K/ L 1.78-5.38 LYMPHOCYTES ABSOLUTE COUNT (BEAKER) (test sezk=296) 0.67 K/ L 1.32-3.57 MONOCYTES ABSOLUTE COUNT (BEAKER) (test cwgs=343) 0.44 K/ L 0.30-0.82 EOSINOPHILS ABSOLUTE COUNT (BEAKER) (test afwf=212) 0.27 K/ L 0.04-0.54 BASOPHILS ABSOLUTE COUNT (BEAKER) (test ptmi=335) 0.06 K/ L 0.01-0.08 IMMATURE GRANULOCYTES-RELATIVE PERCENT (BEAKER) (test xhzl=7977) 0 % 0-1 BODY FLUID CELL COUNT WITH [id number] 22:00:00* Test Item Value Reference Range Comments APPEARANCE FLUID (BEAKER) (test ebuz=863) Slightly Hazy Clear COLOR FLUID (BEAKER) (test qhkv=610) Straw Colorless, Straw RBC FLUID (BEAKER) (test ryuv=121) 45 /cu mm <=1 ADJUSTED WBC FLUID (BEAKER) (test rftw=3789) 82 /cu mm <=5 LINING CELLS (BEAKER) (test trzk=4236) 1 /cu mm <=1 NEUTROPHILS FLUID (BEAKER) (test rroc=6388) 1 % LYMPHS FLUID (BEAKER) (test wvok=049) 51 % MONO/MACROPHAGE FLUID (BEAKER) (test bgkd=068) 48 % EOSINOPHILS FLUID (BEAKER) (test jytz=094) 0 % BASO FLUID (BEAKER) (test rpwj=618) 0 % CONTAINER BODY FLUID (BEAKER) (test wjnk=2867) EDTA Tube MR, ABDOMEN, [id number] 15:06:00Referring: selfInclude Abdominal VesselsFINAL REPORT History: Liver transplant evaluation , cirrhosis Comparison: 06/09/2016 Technique : Multiplanar imaging [...] small right-sided pleural effusions. Signed: Sameer Natarajan Verified Date/Time: 01/29/2017 15:06:08 Reading Location: [address] Body Reading Room -[id number] 14:31:00* Test Item Value Reference Range Comments POC-CREATININE (BEAKER) (test lcdg=3929) 1.0 mg/dL 0.6-1.[address] [address] POC-EGFR (BEAKER) (test jqxe=4106) 79 mL/min/1.73M2 U/S, [id number] 13:31:00Referring: selfAdminister 200 mL of albumin 25% (50 grams) IV x1 after paracentesis if 3 or more liters removed.Send ascitic fluid for cell count and differential.Administer 200 mL of albumin 25% ( 50 grams) IV x1 after paracentesis if 3 or more liters removed.Send ascitic fluid for cell count and differential.Reason for Exam:->ascites, cirrhosis, portal hypertensionFINAL REPORT Ultrasound guided paracentesis Clinical History: Ascites [...] After local anesthesia is achieved, a 5 Slovenian catheter is advanced into the peritoneal cavity. Approximately 6400 cc. of serous fluid is drained, without immediate complications. Fluid is sent for analysis. Patient Disposition: The patient is discharged from the ultrasound department after the paracentesis, in good condition. Impression: Successful and uncomplicated ultrasound guided paracentesis is performed. Signed: Boston Yarbrough MDReport Verified Date/Time: 01/29/2017 13:31:45 Reading Location: [address] Ultrasound Reading Room HROMBIN TIME/[id number] 11:16:00* Test Item Value Reference Range Comments PROTIME (BEAKER) (test avja=460) 18.7 seconds 11.7-14.7 INR (BEAKER) (test ezqn=733) 1.6 <=5.9 RECOMMENDED COUMADIN/WARFARIN INR THERAPY RANGESSTANDARD DOSE: 2.0 - 3.0 Includes: PROPHYLAXIS for venous thrombosis, systemic embolization; TREATMENT for venous thrombosis and/or pulmonary embolus.HIGH RISK: Target INR is 2.5-3.5 for patients with mechanical heart valves.PLATELET [id number] 10:55:00* Test Item Value Reference Range Comments PLATELET COUNT (BEAKER) (test slsr=599) 128 K/CU MM 150-450 ALPHA FETOPROTEIN (AFP), TUMOR [id number] 13:38:00* Test Item Value Reference Range Comments ALPHA-FETOPROTEIN (BEAKER) (test tjct=1895) 4.1 ng/mL <10.0 COMPREHENSIVE METABOLIC [id number] 13:09:00* Test Item Value Reference Range Comments TOTAL PROTEIN (BEAKER) (test dsro=777) 7.4 gm/dL 6.0-8.3 ALBUMIN (BEAKER) (test pfjb=9672) 2.7 g/dL 3.5-5.0 ALKALINE PHOSPHATASE (BEAKER) (test kxsk=296) 148 U/L 40-150 BILIRUBIN TOTAL (BEAKER) (test txhy=096) 2.1 mg/dL 0.2-1.2 SODIUM (BEAKER) (test mrci=724) 134 meq/L 136-145 POTASSIUM (BEAKER) (test yfze=113) 4.0 meq/L 3.5-5.1 CHLORIDE (BEAKER) (test ejpi=458) 103 meq/L 98-107 CO2 (BEAKER) (test pnle=968) 21 meq/L 22-29 BLOOD UREA NITROGEN (BEAKER) (test usrj=701) 11 mg/dL 7-21 CREATININE (BEAKER) (test vsld=675) 0.94 mg/dL 0.57-1.25 GLUCOSE RANDOM (BEAKER) (test utrr=995) 70 mg/dL 70-105 CALCIUM (BEAKER) (test kuel=991) 8.6 mg/dL 8.4-10.2 AST (SGOT) (BEAKER) (test frhc=919) 46 U/L 5-34 ALT (SGPT) (BEAKER) (test dyil=826) 28 U/L 6-55 EGFR (BEAKER) (test xjol=1851) 85 mL/min/1.73 sq m ESTIMATED GFR IS NOT ACCURATE CREATININE CLEARANCE IN PREDICTING GLOMERULAR FILTRATION RATE. ESTIMATED GFR IS NOT APPLICABLE FOR DIALYSIS PATIENTS. Specimen slightly ictericBILIRUBIN, [id number] 13:09:00* Test Item Value Reference Range Comments BILIRUBIN DIRECT (BEAKER) (test kzta=576) 0.9 mg/dL 0.1-0.5 PROTHROMBIN TIME/[id number] 13:03:00* Test Item Value Reference Range Comments PROTIME (BEAKER) (test rstk=660) 17.5 seconds 11.7-14.7 INR (BEAKER) (test zaqi=658) 1.4 <=5.9 RECOMMENDED COUMADIN/WARFARIN INR THERAPY RANGESSTANDARD DOSE: 2.0 - 3.0 Includes: PROPHYLAXIS for venous thrombosis, systemic embolization; TREATMENT for venous thrombosis and/or pulmonary embolus.HIGH RISK: Target INR is 2.5-3.5 for patients with mechanical heart valves.CBC W/PLT COUNT & AUTO [id number] 12:57:00* Test Item Value Reference Range Comments WHITE BLOOD CELL COUNT (BEAKER) (test wpky=475) 4.0 K/ L 3.5-10.5 RED BLOOD CELL COUNT (BEAKER) (test vndd=711) 4.68 M/ L 4.63-6.08 HEMOGLOBIN (BEAKER) (test ldjd=248) 13.9 GM/DL 13.7-17.5 HEMATOCRIT (BEAKER) (test fmlw=712) 42.5 % 40.1-51.0 MEAN CORPUSCULAR VOLUME (BEAKER) (test ddam=194) 90.8 fL 79.0-92.2 MEAN CORPUSCULAR HEMOGLOBIN (BEAKER) (test cksy=638) 29.7 pg 25.7-32.2 MEAN CORPUSCULAR HEMOGLOBIN CONC (BEAKER) (test qbqd=495) 32.7 GM/DL 32.3- 36.5 RED CELL DISTRIBUTION WIDTH (BEAKER) (test zqay=914) 14.7 % 11.6-14.4 PLATELET COUNT (BEAKER) (test mpgv=096) 154 K/CU MM 150-450 MEAN PLATELET VOLUME (BEAKER) (test aoiy=637) 10.2 fL 9.4-12.4 NUCLEATED RED BLOOD CELLS (BEAKER) (test twxj=824) 0 /100 WBC 0-0 NEUTROPHILS RELATIVE PERCENT (BEAKER) (test ieeo=874) 70 % LYMPHOCYTES RELATIVE PERCENT (BEAKER) (test dbjq=079) 16 % MONOCYTES RELATIVE PERCENT (BEAKER) (test wjxh=996) 9 % EOSINOPHILS RELATIVE PERCENT (BEAKER) (test wvvc=377) 4 % BASOPHILS RELATIVE PERCENT (BEAKER) (test fgct=682) 1 % NEUTROPHILS ABSOLUTE COUNT (BEAKER) (test mybq=559) 2.83 K/ L 1.78-5.38 LYMPHOCYTES ABSOLUTE COUNT (BEAKER) (test ylbo=918) 0.63 K/ L 1.32-3.57 MONOCYTES ABSOLUTE COUNT (BEAKER) (test sygm=729) 0.37 K/ L 0.30-0.82 EOSINOPHILS ABSOLUTE COUNT (BEAKER) (test rhlh=302) 0.15 K/ L 0.04-0.54 BASOPHILS ABSOLUTE COUNT (BEAKER) (test wvwb=966) 0.05 K/ L 0.01-0.08 IMMATURE GRANULOCYTES-RELATIVE PERCENT (BEAKER) (test tmcm=5971) 0 % 0-1 HEPATIC FUNCTION [id number] 17:27:00* Test Item Value Reference Range Comments TOTAL PROTEIN (BEAKER) (test igwk=640) 7.4 gm/dL 6.0-8.3 ALBUMIN (BEAKER) (test pgkx=5117) 2.7 g/dL 3.5-5.0 BILIRUBIN TOTAL (BEAKER) (test vdzq=068) 1.4 mg/dL 0.2-1.2 BILIRUBIN DIRECT (BEAKER) (test tnkl=012) 0.7 mg/dL 0.1-0.5 ALKALINE PHOSPHATASE (BEAKER) (test trhb=137) 155 U/L 40-150 AST (SGOT) (BEAKER) (test xdkc=284) 34 U/L 5-34 ALT (SGPT) (BEAKER) (test rosn=178) 26 U/L 6-55 BASIC METABOLIC [id number] 17:27:00* Test Item Value Reference Range Comments SODIUM (BEAKER) (test ulla=402) 133 meq/L 136-145 POTASSIUM (BEAKER) (test eyaw=871) 4.2 meq/L 3.5-5.1 CHLORIDE (BEAKER) (test yltb=564) 101 meq/L 98-107 CO2 (BEAKER) (test bdcl=072) 23 meq/L 22-29 BLOOD UREA NITROGEN (BEAKER) (test irbn=005) 15 mg/dL 7-21 CREATININE (BEAKER) (test aioc=955) 1.14 mg/dL 0.57-1.25 GLUCOSE RANDOM (BEAKER) (test jlrw=885) 66 mg/dL 70-105 CALCIUM (BEAKER) (test leli=098) 8.6 mg/dL 8.4-10.2 EGFR (BEAKER) (test cvan=4881) 68 mL/min/1.73 sq m ESTIMATED GFR IS NOT ACCURATE CREATININE CLEARANCE IN PREDICTING GLOMERULAR FILTRATION RATE. ESTIMATED GFR IS NOT APPLICABLE FOR DIALYSIS PATIENTS. PROTHROMBIN TIME/[id number] 17:24:00* Test Item Value Reference Range Comments PROTIME (BEAKER) (test roll=088) 17.7 seconds 11.7-14.7 INR (BEAKER) (test prij=996) 1.5 <=5.9 RECOMMENDED COUMADIN/WARFARIN INR THERAPY RANGESSTANDARD DOSE: 2.0 - 3.0 Includes: PROPHYLAXIS for venous thrombosis, systemic embolization; TREATMENT for venous thrombosis and/or pulmonary embolus.HIGH RISK: Target INR is 2.5-3.5 for patients with mechanical heart valves.CBC W/PLT COUNT & AUTO [id number] 17:13:00* Test Item Value Reference Range Comments WHITE BLOOD CELL COUNT (BEAKER) (test fgkv=447) 4.2 K/ L 3.5-10.5 RED BLOOD CELL COUNT (BEAKER) (test qfuk=173) 4.34 M/ L 4.63-6.08 HEMOGLOBIN (BEAKER) (test dyrn=805) 13.5 GM/DL 13.7-17.5 HEMATOCRIT (BEAKER) (test mcha=643) 40.2 % 40.1-51.0 MEAN CORPUSCULAR VOLUME (BEAKER) (test vngo=770) 92.6 fL 79.0-92.2 MEAN CORPUSCULAR HEMOGLOBIN (BEAKER) (test asvz=734) 31.1 pg 25.7-32.2 MEAN CORPUSCULAR HEMOGLOBIN CONC (BEAKER) (test djoy=875) 33.6 GM/DL 32.3- 36.5 RED CELL DISTRIBUTION WIDTH (BEAKER) (test hfxv=267) 16.2 % 11.6-14.4 PLATELET COUNT (BEAKER) (test bvqy=346) 128 K/CU MM 150-450 MEAN PLATELET VOLUME (BEAKER) (test cfpb=146) 10.0 fL 9.4-12.4 NUCLEATED RED BLOOD CELLS (BEAKER) (test ygaq=649) 0 /100 WBC 0-0 NEUTROPHILS RELATIVE PERCENT (BEAKER) (test rkuv=951) 66 % LYMPHOCYTES RELATIVE PERCENT (BEAKER) (test rxme=520) 15 % MONOCYTES RELATIVE PERCENT (BEAKER) (test huwo=956) 13 % EOSINOPHILS RELATIVE PERCENT (BEAKER) (test bsaa=768) 5 % BASOPHILS RELATIVE PERCENT (BEAKER) (test bvja=028) 1 % NEUTROPHILS ABSOLUTE COUNT (BEAKER) (test zkhx=037) 2.77 K/ L 1.78-5.38 LYMPHOCYTES ABSOLUTE COUNT (BEAKER) (test ghzb=330) 0.63 K/ L 1.32-3.57 MONOCYTES ABSOLUTE COUNT (BEAKER) (test clmc=817) 0.55 K/ L 0.30-0.82 EOSINOPHILS ABSOLUTE COUNT (BEAKER) (test fwzx=329) 0.19 K/ L 0.04-0.54 BASOPHILS ABSOLUTE COUNT (BEAKER) (test ihdi=385) 0.05 K/ L 0.01-0.08 IMMATURE GRANULOCYTES-RELATIVE PERCENT (BEAKER) (test qwei=2332) 1 % 0-1 OUTSIDE [id number] 14:56:00Surgical Pathology Report Case: [id number] Authorizing Provider: Eric Ortega MD Collected: 07/17/2016 1449 Ordering Location: [facility] Day Surgery Received: 2016 1451 Pathologist: Delfino Andrade MD Specimen: Liver, Recieved 5 slides label [id number] [facility] OUTSIDE SLIDES, [id number], PARACENTESIS FLUID, (DATE OF PROCEDURE 10/21/2014): - NEGATIVE FOR MALIGNANCY - SEVERE ACUTE INFLAMMATION [id number] cirrhosis and portal hypertension.Outside slides, [id number], paracentesis fluid, date of procedure 07/2014, received from The Department of Pathology, [facility], [address] [address].Received five glass slides ( 3 HE, 2 cytospin), each labeled [id number], along with the pathology report.Cell block and cytospin show sheets of neutrophils with scattered lymphocytes. No tumor cells are seen.EBV-VCA ANTIBODY, [id number] 14:36:00* Test Item Value Reference Range Comments CONNOR-GHOSH VCA IGM (BEAKER) (test jttk=524) Positive CYTOMEGALOVIRUS ANTIBODY, [id number] 12:11:00* Test Item Value Reference Range Comments CYTOMEGALOVIRUS IGG ANTIBODY (BEAKER) (test jndl=747) Positive CYTOMEGALOVIRUS ANTIBODY, [id number] 12:11:00* Test Item Value Reference Range Comments CYTOMEGALOVIRUS IGM ANTIBODY (BEAKER) (test ufvm=394) Negative EBV-VCA ANTIBODY, [id number] 12:11:00* Test Item Value Reference Range Comments CONNOR-GHOSH VCA IGG (BEAKER) (test bmdu=651) Positive URINALYSIS W/ [id number] 14:46:00* Test Item Value Reference Range Comments COLOR (BEAKER) (test pils=188) Yellow CLARITY (BEAKER) (test yfpk=844) Clear SPECIFIC GRAVITY UA (BEAKER) (test qrzv=571) 1.026 1.001-1.035 PH UA (BEAKER) (test fnii=733) 5.5 5.0-8.0 PROTEIN UA (BEAKER) (test paap=235) 10 mg/dL Negative GLUCOSE UA (BEAKER) (test fscl=777) Negative Negative KETONES UA (BEAKER) (test ghvq=310) Trace Negative BILIRUBIN UA (BEAKER) (test qbtp=764) Negative Negative BLOOD UA (BEAKER) (test ijvh=861) Negative Negative NITRITE UA (BEAKER) (test wnun=759) Negative Negative LEUKOCYTE ESTERASE UA (BEAKER) (test mubq=848) Negative Negative UROBILINOGEN UA (BEAKER) (test zvkk=202) 2.0 mg/dL 0.2-1.0 RBC UA (BEAKER) (test yqek=066) 1 /HPF WBC UA (BEAKER) (test hlcw=360) 1 /HPF MUCUS (BEAKER) (test mpon=0331) Rare SQUAMOUS EPITHELIAL (BEAKER) (test oqlh=792) < /HPF HYALINE CASTS (BEAKER) (test okzf=495) 5 /LPF SOURCE(BEAKER) (test jgfg=5783) HEMOGLOBIN [id number] 11:45:00* Test Item Value Reference Range Comments HEMOGLOBIN A1C (BEAKER) (test vxsj=828) 5.1 % 4.3-6.1 [id number] 11:03:00* Test Item Value Reference Range Comments PROSTATE SPECIFIC ANTIGEN (BEAKER) (test ypyd=933) 0.1 ng/mL 0.0-4.0 HEPATITIS B CORE ANTIBODY, [id number] 11:03:00* Test Item Value Reference Range Comments HEPATITIS B CORE IGM ANTIBODY (BEAKER) (test euzc=324) Nonreactive Nonreactive HIV-1 ANTIGEN WITH HIV-1/2 [id number] 11:03:00* Test Item Value Reference Range Comments HIV-1 ANTIGEN WITH HIV 1\T\2 ANTIBODY (2) (BEAKER) (test crvp=9830) Nonreactive Nonreactive VITAMIN D, 34-[id number] 11:03:00* Test Item Value Reference Range Comments VITAMIN D 25-OH (BEAKER) (test zzrd=6345) 18.5 ng/mL 13.0-47.8 [id number] 10:55:00* Test Item Value Reference Range Comments RPR SCREEN (BEAKER) (test whxk=178) Nonreactive Nonreactive [id number] 10:20:00* Test Item Value Reference Range Comments THYROID STIMULATING HORMONE (BEAKER) (test dely=479) 5.95 uIU/mL 0.35-4.94 [id number] 10:18:00* Test Item Value Reference Range Comments T3 TOTAL (BEAKER) (test qaoa=775) 99 ng/dL 48-159 Effective 02/03/2014: Reference Range ChangeNew: 48-159 Previous: 60- 181CARCINOEMBRYONIC ANTIGEN (CEA)2016-08-09 10:18:00* Test Item Value Reference Range Comments CARCINOEMBRYONIC ANTIGEN (BEAKER) (test gktq=114) 2.7 ng/mL 0.0-5.0 BLOOD GAS, [id number] 10:12:00* Test Item Value Reference Range Comments PH ARTERIAL (BEAKER) (test usxd=429) 7.50 7.35-7.45 PCO2 ARTERIAL (BEAKER) (test umdu=862) 31 mm Hg 35-45 PO2 ARTERIAL (BEAKER) (test ajed=330) 80 mm Hg 80-90 O2 SATURATION ARTERIAL (BEAKER) (test upnn=687) 96.8 % 96.0-97.0 HCO3 ARTERIAL (BEAKER) (test fuys=204) 23 mmol/L 21-29 BASE EXCESS ARTERIAL (BEAKER) (test hqmv=099) 1.1 mmol/L -2.0-3.0 [id number] 10:11:00* Test Item Value Reference Range Comments T4 TOTAL (BEAKER) (test wdsg=352) 8.2 ug/dL 4.9-11.7 CALCIUM, [id number] 10:10:00* Test Item Value Reference Range Comments CALCIUM IONIZED (BEAKER) (test nrmr=026) 1.00 mmol/L 1.12-1.27 PH, BLOOD (BEAKER) (test cmpv=3467) 7.50 [id number] 10:05:00* Test Item Value Reference Range Comments TRANSFERRIN (BEAKER) (test ywet=850) 214 mg/dL 174-382 [id number] 10:02:00* Test Item Value Reference Range Comments ETHANOL (BEAKER) (test vcjf=127) < mg/dL <=10 URIC [id number] 09:52:00* Test Item Value Reference Range Comments URIC ACID (BEAKER) (test nmtx=867) 7.0 mg/dL 2.6-7.2 [id number] 09:52:00* Test Item Value Reference Range Comments MAGNESIUM (BEAKER) (test adza=236) 1.8 mg/dL 1.6-2.6 [id number] 09:52:00* Test Item Value Reference Range Comments PHOSPHORUS (BEAKER) (test iuhl=921) 3.1 mg/dL 2.3-4.7 COMPREHENSIVE METABOLIC [id number] 09:52:00* Test Item Value Reference Range Comments TOTAL PROTEIN (BEAKER) (test leed=343) 8.0 gm/dL 6.0-8.3 ALBUMIN (BEAKER) (test djdk=6842) 2.7 g/dL 3.5-5.0 ALKALINE PHOSPHATASE (BEAKER) (test kvqw=769) 201 U/L 40-150 BILIRUBIN TOTAL (BEAKER) (test xqmm=817) 1.2 mg/dL 0.2-1.2 SODIUM (BEAKER) (test xdtl=038) 134 meq/L 136-145 POTASSIUM (BEAKER) (test vglp=475) 3.9 meq/L 3.5-5.1 CHLORIDE (BEAKER) (test ucmh=078) 101 meq/L 98-107 CO2 (BEAKER) (test mjmf=225) 25 meq/L 22-29 BLOOD UREA NITROGEN (BEAKER) (test jdfw=618) 17 mg/dL 7-21 CREATININE (BEAKER) (test nqbh=692) 0.96 mg/dL 0.57-1.25 GLUCOSE RANDOM (BEAKER) (test wydu=480) 76 mg/dL 70-105 CALCIUM (BEAKER) (test ezsp=584) 8.2 mg/dL 8.4-10.2 AST (SGOT) (BEAKER) (test hree=264) 44 U/L 5-34 ALT (SGPT) (BEAKER) (test cbwc=446) 27 U/L 6-55 EGFR (BEAKER) (test gdlq=6306) 83 mL/min/1.73 sq m ESTIMATED GFR IS NOT ACCURATE CREATININE CLEARANCE IN PREDICTING GLOMERULAR FILTRATION RATE. ESTIMATED GFR IS NOT APPLICABLE FOR DIALYSIS PATIENTS. LIPID [id number] 09:52:00* Test Item Value Reference Range Comments TRIGLYCERIDES (BEAKER) (test rtyo=750) 58 mg/dL CHOLESTEROL (BEAKER) (test yxef=142) 96 mg/dL HDL CHOLESTEROL (BEAKER) (test hbco=636) 30 mg/dL LDL CHOLESTEROL CALCULATED (BEAKER) (test yxjw=883) 54 mg/dL Triglyceride Reference Range: Low Risk <150 Borderline 150-199 High Risk 200-499 Very High Risk >=500Cholesterol Reference Range: Low Risk <200 Borderline 200-239 High Risk >240HDL Cholesterol Reference Range: Low Risk >=60 High Risk <40LDL Cholesterol Reference Range: Optimal <100 Near Optimal 100-129 Borderline 130-159 High 160-189 Very High >=190 BILIRUBIN, [id number] 09:52:00* Test Item Value Reference Range Comments BILIRUBIN DIRECT (BEAKER) (test rsqu=344) 0.6 mg/dL 0.1-0.5 GAMMA GLUTAMYL TRANSFERASE (GGT)2016-08-09 09:52:00* Test Item Value Reference Range Comments GAMMA GLUTAMYL TRANSFERASE (BEAKER) (test sjsy=551) 35 U/L 9-64 PROTHROMBIN [id number] 09:31:00* Test Item Value Reference Range Comments PROTIME (BEAKER) (test fzsp=624) 18.2 seconds 11.7-14.7 INR (BEAKER) (test hfxi=241) 1.5 <=5.9 RECOMMENDED COUMADIN/WARFARIN INR THERAPY RANGESSTANDARD DOSE: 2.0 - 3.0 Includes: PROPHYLAXIS for venous thrombosis, systemic embolization; TREATMENT for venous thrombosis and/or pulmonary embolus.HIGH RISK: Target INR is 2.5-3.5 for patients with mechanical heart valves.[id number] 09:31:00* Test Item Value Reference Range Comments FIBRINOGEN LEVEL (BEAKER) (test qnvb=959) 352 mg/dl 225-434 [id number] 09:31:00* Test Item Value Reference Range Comments PARTIAL THROMBOPLASTIN TIME (BEAKER) (test fpfs=942) 39.0 seconds 22.5-36.0 CBC W/PLT COUNT & AUTO [id number] 09:22:00* Test Item Value Reference Range Comments WHITE BLOOD CELL COUNT (BEAKER) (test znas=058) 4.7 K/ L 4.0-10.0 RED BLOOD CELL COUNT (BEAKER) (test gwdo=243) 4.52 M/ L 4.20-5.80 HEMOGLOBIN (BEAKER) (test lwsk=911) 15.1 GM/DL 13.0-16.8 HEMATOCRIT (BEAKER) (test ddfk=442) 43.4 % 40.0-50.0 MEAN CORPUSCULAR VOLUME (BEAKER) (test oitz=887) 95.9 fL 82.0-98.0 MEAN CORPUSCULAR HEMOGLOBIN (BEAKER) (test xlib=937) 33.4 pg 27.0-33.0 MEAN CORPUSCULAR HEMOGLOBIN CONC (BEAKER) (test blxs=713) 34.8 GM/DL 32.0- 36.0 RED CELL DISTRIBUTION WIDTH (BEAKER) (test jfpc=254) 14.4 % 10.3-14.2 PLATELET COUNT (BEAKER) (test ubgl=460) 135 K/CU MM 150-430 MEAN PLATELET VOLUME (BEAKER) (test liqx=234) 7.3 fL 6.5-10.5 NUCLEATED RED BLOOD CELLS (BEAKER) (test yand=667) 0 /100 WBC 0-0 NEUTROPHILS RELATIVE PERCENT (BEAKER) (test oqhq=708) 66 % LYMPHOCYTES RELATIVE PERCENT (BEAKER) (test crmp=331) 20 % MONOCYTES RELATIVE PERCENT (BEAKER) (test ckyv=090) 8 % EOSINOPHILS RELATIVE PERCENT (BEAKER) (test tiyd=143) 5 % BASOPHILS RELATIVE PERCENT (BEAKER) (test pfgv=089) 1 % NEUTROPHILS ABSOLUTE COUNT (BEAKER) (test dgdv=509) 3.09 K/ L 1.80-8.00 LYMPHOCYTES ABSOLUTE COUNT (BEAKER) (test ffxq=511) 0.91 K/ L 1.48-4.50 MONOCYTES ABSOLUTE COUNT (BEAKER) (test cunl=515) 0.37 K/ L 0.00-1.30 EOSINOPHILS ABSOLUTE COUNT (BEAKER) (test vjxe=087) 0.25 K/ L 0.00-0.50 BASOPHILS ABSOLUTE COUNT (BEAKER) (test ijis=016) 0.04 K/ L 0.00-0.20 0.00BODY FLUID CULTURE + GRAM [id number] 11:43:00* Test Item Value Reference Range Comments CULTURE (BEAKER) (test lkrw=3504) No growth GRAM STAIN RESULT (BEAKER) (test udvw=9037) 1+ WBCs GRAM STAIN RESULT (BEAKER) (test splk=76683) No organisms seen [id number] 13:47:00* Test Item Value Reference Range Comments LAB AP CPT CODE (BEAKER) (test vbnr=7483) 53117 BODY FLUID CELL COUNT WITH [id number] 18:02:00* Test Item Value Reference Range Comments APPEARANCE FLUID (BEAKER) (test dgen=481) Hazy Clear COLOR FLUID (BEAKER) (test buxd=144) Yellow Colorless, Straw RBC FLUID (BEAKER) (test tdbg=684) 660 /cu mm <=1 ADJUSTED WBC FLUID (BEAKER) (test lxlp=7054) 80 /cu mm <=5 LINING CELLS (BEAKER) (test gcvr=8939) 0 /cu mm <=1 NEUTROPHILS FLUID (BEAKER) (test qlgk=0513) 4 % LYMPHS FLUID (BEAKER) (test hupu=463) 43 % MONO/MACROPHAGE FLUID (BEAKER) (test crtu=583) 53 % EOSINOPHILS FLUID (BEAKER) (test xtmh=272) 0 % BASO FLUID (BEAKER) (test sqtm=037) 0 % CONTAINER BODY FLUID (BEAKER) (test tjkp=1132) EDTA Tube PROTEIN, BODY [id number] 14:58:00* Test Item Value Reference Range Comments PROTEIN FLUID (BEAKER) (test bafp=753) 1.0 g/dL Absence of reference range indicates that normals have not been defined.Assay performance has not been validated for this type of specimen.ALBUMIN, BODY [id number] 14:58:00* Test Item Value Reference Range Comments ALBUMIN FLUID (BEAKER) (test yrof=711) 0.4 gm/dL Reference Range: No Normals Assay performance has not been validated for this type of specimen.ANTI-NUCLEAR ANTIBODY (VINNIE)2016-07-14 14:01:00* Test Item Value Reference Range Comments ANTI-NUCLEAR ANTIBODY (VINNIE) (BEAKER) (test sccv=754) Negative Negative [id number] 16:21:00* Test Item Value Reference Range Comments FERRITIN (BEAKER) (test nqgc=762) 174 ng/mL 5-275 Effective 02/03/2014: Reference Range ChangeNew: Male 5-275 Previous: Male 22-322 Female 5-275 Female 10-291 ALPHA FETOPROTEIN (AFP), TUMOR [id number] 14:20:00* Test Item Value Reference Range Comments ALPHA-FETOPROTEIN (BEAKER) (test qhjm=8473) 7.8 ng/mL <10.0 Effective 02/03/2014: Reference Range ChangeNew: <10.0 Previous: 0.0- 8.0HEPATITIS A ANTIBODY, [id number] 14:20:00* Test Item Value Reference Range Comments HEPATITIS A IGM ANTIBODY (BEAKER) (test xnsd=106) Nonreactive Nonreactive HEPATITIS B CORE ANTIBODY, [id number] 14:20:00* Test Item Value Reference Range Comments HEPATITIS B CORE TOTAL ANTIBODY (BEAKER) (test lzhh=281) Nonreactive Nonreactive HEPATITIS A ANTIBODY, [id number] 14:20:00* Test Item Value Reference Range Comments HEPATITIS A IGG ANTIBODY (BEAKER) (test tcxo=9230) Reactive Nonreactive HEPATITIS B SURFACE [id number] 14:05:00* Test Item Value Reference Range Comments HEPATITIS B SURFACE ANTIGEN (2) (BEAKER) (test phgw=7463) Nonreactive Nonreactive HEPATITIS B SURFACE [id number] 14:05:00* Test Item Value Reference Range Comments HEPATITIS B SURFACE ANTIBODY (BEAKER) (test pxqd=255) 41.5 mIU/mL <8.0 HEPATITIS C [id number] 14:05:00* Test Item Value Reference Range Comments HEPATITIS C ANTIBODY (BEAKER) (test pytu=743) Nonreactive Nonreactive [id number] 13:53:00* Test Item Value Reference Range Comments PREALBUMIN (BEAKER) (test jjmz=336) 3 mg/dL 14-45 COMPREHENSIVE METABOLIC [id number] 13:48:00* Test Item Value Reference Range Comments TOTAL PROTEIN (BEAKER) (test knzh=825) 7.8 gm/dL 6.0-8.3 ALBUMIN (BEAKER) (test dhyr=6808) 2.4 g/dL 3.5-5.0 ALKALINE PHOSPHATASE (BEAKER) (test zlad=704) 146 U/L 40-150 BILIRUBIN TOTAL (BEAKER) (test wxbn=374) 2.4 mg/dL 0.2-1.2 SODIUM (BEAKER) (test hcqh=950) 133 meq/L 136-145 POTASSIUM (BEAKER) (test guww=301) 3.4 meq/L 3.5-5.1 CHLORIDE (BEAKER) (test zewv=367) 95 meq/L 98-107 CO2 (BEAKER) (test kcjf=207) 31 meq/L 22-29 BLOOD UREA NITROGEN (BEAKER) (test dawx=901) 10 mg/dL 7-21 CREATININE (BEAKER) (test hnjd=242) 1.10 mg/dL 0.57-1.25 GLUCOSE RANDOM (BEAKER) (test lvbo=711) 82 mg/dL 70-105 CALCIUM (BEAKER) (test wplq=349) 8.5 mg/dL 8.4-10.2 AST (SGOT) (BEAKER) (test zrkm=633) 26 U/L 5-34 ALT (SGPT) (BEAKER) (test laui=002) 11 U/L 6-55 EGFR (BEAKER) (test tvgc=0655) 71 mL/min/1.73 sq m ESTIMATED GFR IS NOT ACCURATE CREATININE CLEARANCE IN PREDICTING GLOMERULAR FILTRATION RATE. ESTIMATED GFR IS NOT APPLICABLE FOR DIALYSIS PATIENTS. Specimen slightly ictericBILIRUBIN, [id number] 13:48:00* Test Item Value Reference Range Comments BILIRUBIN DIRECT (BEAKER) (test dghs=947) 0.9 mg/dL 0.1-0.5 IRON, TIBC, % SAT. (WITHOUT FERRITIN)2016-07-12 13:44:00* Test Item Value Reference Range Comments IRON (BEAKER) (test sqhy=882) 70 ug/dL 40-160 TOTAL IRON BINDING CAPACITY (BEAKER) (test vcdc=436) 210 ug/dL 250-450 IRON % SATURATION (2) (BEAKER) (test jakm=2524) 33 % 20-55 PROTHROMBIN [id number] 13:44:00* Test Item Value Reference Range Comments PROTIME (BEAKER) (test qmon=106) 18.4 seconds 11.7-14.7 INR (BEAKER) (test hpva=276) 1.5 <=5.9 RECOMMENDED COUMADIN/WARFARIN INR THERAPY RANGESSTANDARD DOSE: 2.0 - 3.0 Includes: PROPHYLAXIS for venous thrombosis, systemic embolization; TREATMENT for venous thrombosis and/or pulmonary embolus.HIGH RISK: Target INR is 2.5-3.5 for patients with mechanical heart valves.CBC W/PLT COUNT & AUTO [id number] 13:40:00* Test Item Value Reference Range Comments WHITE BLOOD CELL COUNT (BEAKER) (test hnrp=820) 3.5 K/ L 4.0-10.0 RED BLOOD CELL COUNT (BEAKER) (test azgs=440) 4.55 M/ L 4.20-5.80 HEMOGLOBIN (BEAKER) (test dvhz=730) 14.9 GM/DL 13.0-16.8 HEMATOCRIT (BEAKER) (test sviq=537) 43.7 % 40.0-50.0 MEAN CORPUSCULAR VOLUME (BEAKER) (test ebef=074) 96.0 fL 82.0-98.0 MEAN CORPUSCULAR HEMOGLOBIN (BEAKER) (test aevi=658) 32.8 pg 27.0-33.0 MEAN CORPUSCULAR HEMOGLOBIN CONC (BEAKER) (test dvrq=113) 34.1 GM/DL 32.0- 36.0 RED CELL DISTRIBUTION WIDTH (BEAKER) (test rixv=113) 15.6 % 10.3-14.2 PLATELET COUNT (BEAKER) (test gdlx=322) 95 K/CU MM 150-430 MEAN PLATELET VOLUME (BEAKER) (test dpal=590) 8.4 fL 6.5-10.5 NUCLEATED RED BLOOD CELLS (BEAKER) (test njby=287) 0 /100 WBC 0-0 NEUTROPHILS RELATIVE PERCENT (BEAKER) (test fwmt=367) 61 % LYMPHOCYTES RELATIVE PERCENT (BEAKER) (test hnyy=566) 24 % MONOCYTES RELATIVE PERCENT (BEAKER) (test eoxl=213) 10 % EOSINOPHILS RELATIVE PERCENT (BEAKER) (test henq=091) 4 % BASOPHILS RELATIVE PERCENT (BEAKER) (test rpuw=068) 1 % NEUTROPHILS ABSOLUTE COUNT (BEAKER) (test grze=605) 2.11 K/ L 1.80-8.00 LYMPHOCYTES ABSOLUTE COUNT (BEAKER) (test amqp=848) 0.83 K/ L 1.48-4.50 MONOCYTES ABSOLUTE COUNT (BEAKER) (test gloh=432) 0.34 K/ L 0.00-1.30 EOSINOPHILS ABSOLUTE COUNT (BEAKER) (test yuvm=101) 0.15 K/ L 0.00-0.50 BASOPHILS ABSOLUTE COUNT (BEAKER) (test xkec=019) 0.04 K/ L 0.00-0.20 0.00
[2017-08-09 13:30] LABS: BASOPHILS % 1.2 % (0.0-1.0); EOSINOPHILS # (AUTO) 0.3 (0.0-0.4); EOSINOPHILS % 8.5 % (0.0-6.0); HEMATOCRIT 46.1 % (38.2-49.6); HEMOGLOBIN 15.6 g/dL (14.0-18.0); LYMPHOCYTES # (AUTO) 0.6 (1.0-3.2); LYMPHOCYTES % 17.5 % (18.0-39.1); MEAN CORPUSCULAR HEMOGLOBIN 29.4 pg (28-32); MEAN CORPUSCULAR HGB CONC 33.8 g/dL (31-35); MONOCYTES # (AUTO) 0.4 (0.2-0.8); MONOCYTES % 11.5 % (4.4-11.3); PLATELET COUNT 141 x10e3/uL (140-360); RED CELL DISTRIBUTION WIDTH 19.2 % (11.7-14.4)
[2017-08-09 13:40] LABS: INR 1.67; PROTHROMBIN TIME 18.5 seconds (11.9-14.5)
[2017-08-09 13:41] LABS: PARTIAL THROMBOPLASTIN TIME 41.8 seconds (23.8-35.5)
--- NOTE | 2017-08-09 13:42 | Diagnostic Imaging Report ---
PROCEDURE: Frontal and lateral views of the chest. COMPARISON: None. INDICATIONS: ABDOMINAL DISTENSION, SHORTNESS OF BREATH FINDINGS: Lines/tubes: None. Lungs and pleura: Lungs are mildly hypoinflated. Increased density in the left lower hemithorax with obscuration of the left hemidiaphragm and blunting of the left posterior costophrenic sulcus, consistent with pleural effusion and associated atelectasis or consolidation. Right lung is clear. Heart and mediastinum: Cardiac silhouette is obscured. Pulmonary vasculature is normal. Bones: No acute bony abnormality. IMPRESSION: 1. left pleural effusion with associated atelectasis or consolidation. A left lower lobe pneumonia with parapneumonic effusion is a consideration, in the appropriate clinical setting. Hayden Beltrán M.D. Dictated by: Hayden Beltrán M.D. on 08/09/2017 at 13:44 Electronically approved by: Hayden Beltrán M.D. on 08/09/2017 at 13:44
[2017-08-09 13:50] LABS: ALANINE AMINOTRANSFERASE 15 IU/L (0-55); ALBUMIN 2.3 g/dL (3.5-5.0); ALBUMIN/GLOBULIN RATIO 0.5 (0.8-2.0); ALKALINE PHOSPHATASE 156 IU/L (40-150); ANION GAP 9.9 mmol/L (8-16); BLOOD UREA NITROGEN 7 mg/dL (7-26); BUN/CREATININE RATIO 9 (6-25); CALCIUM 8.4 mg/dL (8.4-10.2); CARBON DIOXIDE 22 mmol/L (22-29); CHLORIDE 107 mmol/L (98-107); CREATININE, SERUM 0.77 mg/dL (0.72-1.25); EST GLOMERULAR FILTRATION RATE > 60 ML/MIN (60-); GLUCOSE 81 mg/dL (74-118); POTASSIUM 3.9 mmol/L (3.5-5.1); SODIUM 135 mmol/L (136-145)
[2017-08-09] MEDS ORDERED: LEVOFLOXACIN 500MG/D5W 100ML 100 ML IV SCH (14:30)
[2017-08-09] MEDS ORDERED: SODIUM CHLORIDE 0.9% 1000ML 1,000 ML IV SCH (14:42)
[2017-08-09] MEDS ORDERED: ONDANSETRON HCL 4 MG ORAL DISINTEGRATING TAB PO PRN (14:45)
[2017-08-09] MEDS ORDERED: AZITHROMYCIN 500MG/NS 250 ML 250 ML IV SCH (15:00)
== END 2017-08-09 15:37 | disposition left against medical advice (07) ==
LOC: ER 12:45
DX: R18.8 Other ascites (principal); K74.60 Unspecified cirrhosis of liver; J90 Pleural effusion, not elsewhere classified
CPT/HCPCS: 36415; 71046; 80053; 85025; 85610; 85730; 99283